=== PATIENT | female | born 1990 ===

== ENCOUNTER 2020-05-06 10:30 | Inpatient (IN) | payer OTHER ==
[~2020-05-06] VITALS: Ht 160 cm; Wt 79.4 kg
[2020-05-06] MEDS ORDERED: AVAPRO150 MG PO (14:51)
[2020-05-17] MEDS ORDERED: NAPR500T14 PO (09:15)
[2020-05-17] MEDS ORDERED: Tylenol #3 PO (09:15)
== END 2020-05-17 10:43 | disposition home or self-care (01) | DRG 743 ==
LOC: O/R 05-13 06:00 → OB/GYN 05-13 06:00 → SURH 05-13 10:30 → OB/GYN 05-13 15:58
PROVIDERS: ADMIT Obstetrics & Gynecology; ATTEND Obstetrics & Gynecology
PROC: 0UB90ZZ Excision of Uterus, Open Approach (ICD-10-PCS; principal; 2020-05-13 13:15)
DX: D25.1 Intramural leiomyoma of uterus (principal); I10 Essential (primary) hypertension; E66.8 Other obesity; R00.0 Tachycardia, unspecified; E87.6 Hypokalemia